=== PATIENT | female | born 1940 | race Two or more races ===

== ENCOUNTER 2020-03-27 10:40 | Outpatient (CLI) | payer OTHER | END 2020-03-27 10:44 | disposition home or self-care (01) | LOC: SONOGRAMA 10:40 | PROVIDERS: ATTEND Pathology Anatomic Pathology & Clinical Pathology | DX: D11.0 Benign neoplasm of parotid gland (principal) ==

== ENCOUNTER 2020-10-07 09:04 | Outpatient (CLI) | payer OTHER | END 2020-10-11 09:10 | disposition home or self-care (01) | LOC: RAD 09:04 | PROVIDERS: ATTEND Colon & Rectal Surgery | DX: K59.09 Other constipation (principal) ==

== ENCOUNTER 2020-12-16 10:45 | Inpatient (IN) | payer OTHER ==
[~2020-12-16] VITALS: Ht 160 cm; Wt 54.4 kg
[2020-12-16] MEDS ORDERED: NORVASC5 MG PO (13:50)
[2020-12-16] MEDS ORDERED: PROTONIX40 MG PO (13:51)
[2020-12-16] MEDS ORDERED: APRESOLINE 10MG10 MG PO (13:51)
[2020-12-16] MEDS ORDERED: GABAPENTIN100 M2 PO (13:51)
[2020-12-16] MEDS ORDERED: FINASTERIDE1 MG PO (13:52)
[2020-12-16] MEDS ORDERED: ZYLOPRIM100 M1 PO (13:52)
[2020-12-16] MEDS ORDERED: TAMS0.4C PO (13:52)
[2020-12-16] MEDS ORDERED: LIPITOR20 MG PO (13:53)
[2020-12-25] MEDS ORDERED: SIMVASTATIN20 MG (10:10)
[2020-12-25] MEDS ORDERED: FAMOTIDINE20 MG (10:10)
[2021-02-13] MEDS ORDERED: INTEGRA F CAPS1 EACH PO (12:44)
[2021-02-13] MEDS ORDERED: TAMS0.4C PO (12:44)
[2021-02-13] MEDS ORDERED: METOPROLOL SUC100 MG PO (12:46)
[2021-02-13] MEDS ORDERED: PROTONIX40 MG PO (12:48)
[2021-02-13] MEDS ORDERED: INTESTINEX680 M1 PO (12:49)
[2021-02-13] MEDS ORDERED: SIMETHICONE125 M1 PO (12:50)
[2021-02-13] MEDS ORDERED: LEVOTHYROXINE50 MCG PO (12:51)
[2021-02-13] MEDS ORDERED: Neurin-Sl Tablet Sl SL (12:52)
[2021-02-13] MEDS ORDERED: FINASTERIDE1 MG PO (12:52)
[2021-02-13] MEDS ORDERED: ZYLOPRIM100 M1 PO (12:53)
[2021-02-13] MEDS ORDERED: B Complex CAPSULE PO (12:53)
[2021-02-13] MEDS ORDERED: PROTEINEX-18 LI30 ML PO (12:54)
[2021-02-13] MEDS ORDERED: THIAMINE HCL100 MG PO (12:56)
[2021-02-13] MEDS ORDERED: ECOTRIN81 MG PO (13:04)
[2021-02-13] MEDS ORDERED: LIPITOR40 M1 PO (13:10)
== END 2021-02-13 18:25 | disposition home health service (06) | DRG 329 ==
LOC: SURH 12-23 07:00 → O/R 12-23 07:15 → SURH 12-23 07:15
PROVIDERS: ADMIT Colon & Rectal Surgery; ATTEND Colon & Rectal Surgery
PROC: 0DTP4ZZ Resection of Rectum, Percutaneous Endoscopic Approach (ICD-10-PCS; 2020-12-23)
PROC: 0DBB4ZZ Excision of Ileum, Percutaneous Endoscopic Approach (ICD-10-PCS; 2020-12-23)
PROC: 0DBN4ZZ Excision of Sigmoid Colon, Percutaneous Endoscopic Approach (ICD-10-PCS; principal; 2020-12-23 07:00)
PROC: 30233N1 Transfusion of Nonautologous Red Blood Cells into Peripheral Vein, Percutaneous Approach (ICD-10-PCS; 2020-12-24)
PROC: 3E0F7SF Introduction of Other Gas into Respiratory Tract, Via Natural or Artificial Opening (ICD-10-PCS; 2020-12-27)
PROC: 02HV33Z Insertion of Infusion Device into Superior Vena Cava, Percutaneous Approach (ICD-10-PCS; 2020-12-28)
PROC: 4A12X4Z Monitoring of Cardiac Electrical Activity, External Approach (ICD-10-PCS; 2020-12-29)
PROC: 5A09457 Assistance with Respiratory Ventilation, 24-96 Consecutive Hours, Continuous Positive Airway Pressure (ICD-10-PCS; 2021-01-04)
PROC: 4A033R1 Measurement of Arterial Saturation, Peripheral, Percutaneous Approach (ICD-10-PCS; 2021-01-05)
PROC: 0W9G40Z Drainage of Peritoneal Cavity with Drainage Device, Percutaneous Endoscopic Approach (ICD-10-PCS; 2021-01-15)
DX: K59.02 Outlet dysfunction constipation (principal); I21.4 Non-ST elevation (NSTEMI) myocardial infarction; J81.0 Acute pulmonary edema; G92.8 Other toxic encephalopathy; J18.9 Pneumonia, unspecified organism; K65.1 Peritoneal abscess; N17.8 Other acute kidney failure; J98.11 Atelectasis; E87.0 Hyperosmolality and hypernatremia; I48.20 Chronic atrial fibrillation, unspecified; J95.84 Transfusion-related acute lung injury (TRALI); K62.5 Hemorrhage of anus and rectum; T81.49XA Infection following a procedure, other surgical site, initial encounter; D62 Acute posthemorrhagic anemia; T81.32XA Disruption of internal operation (surgical) wound, not elsewhere classified, initial encounter; K91.89 Other postprocedural complications and disorders of digestive system; N18.31 Chronic kidney disease, stage 3a; N99.0 Postprocedural (acute) (chronic) kidney failure; E87.6 Hypokalemia; R33.8 Other retention of urine; I13.10 Hypertensive heart and chronic kidney disease without heart failure, with stage 1 through stage 4 chronic kidney disease, or unspecified chronic kidney disease; Z79.01 Long term (current) use of anticoagulants; R09.02 Hypoxemia; Y84.8 Other medical procedures as the cause of abnormal reaction of the patient, or of later complication, without mention of misadventure at the time of the procedure; E11.649 Type 2 diabetes mellitus with hypoglycemia without coma; D69.59 Other secondary thrombocytopenia; Z79.4 Long term (current) use of insulin; Y83.8 Other surgical procedures as the cause of abnormal reaction of the patient, or of later complication, without mention of misadventure at the time of the procedure
CPT/HCPCS: 70544

== ENCOUNTER 2021-03-05 07:43 | Inpatient (IN) | payer OTHER ==
[~2021-03-05] VITALS: Ht 160 cm; Wt 45.4 kg
[~2021-03-05 07:43] MED LIST: APRESOLINE 10MG10 MG PO; B Complex CAPSULE PO; ECOTRIN81 MG PO; FAMOTIDINE20 MG; FINASTERIDE1 MG PO; GABAPENTIN100 M2 PO; INTEGRA F CAPS1 EACH PO; INTESTINEX680 M1 PO; LEVOTHYROXINE50 MCG PO; LIPITOR20 MG PO; LIPITOR40 M1 PO; METOPROLOL SUC100 MG PO; NORVASC5 MG PO; Neurin-Sl Tablet Sl SL; PROTEINEX-18 LI30 ML PO; PROTONIX40 MG PO; SIMETHICONE125 M1 PO; SIMVASTATIN20 MG; TAMS0.4C PO; THIAMINE HCL100 MG PO; ZYLOPRIM100 M1 PO
[2021-03-11] MEDS ORDERED: ABANEU-SL TABL1 EACH (14:44)
[2021-03-11] MEDS ORDERED: B COMPLEX1 EAC1 PO (14:44)
[2021-03-13] MEDS ORDERED: LEVOTHYROXINE50 MCG PO (12:44)
[2021-03-13] MEDS ORDERED: METOPROLOL SUC100 MG PO (12:44)
[2021-03-13] MEDS ORDERED: LIPITOR40 M1 PO (12:44)
[2021-03-13] MEDS ORDERED: FAMOTIDINE20 MG PO (12:44)
[2021-03-13] MEDS ORDERED: INTESTINEX680 M1 PO (12:44)
[2021-03-13] MEDS ORDERED: TAMS0.4C PO (12:44)
[2021-03-13] MEDS ORDERED: ABANEU-SL TABL1 EACH SL (12:44)
[2021-03-13] MEDS ORDERED: FINASTERIDE1 MG PO (12:44)
[2021-03-13] MEDS ORDERED: INTEGRA F CAPS1 EACH PO (12:44)
[2021-03-13] MEDS ORDERED: PROTEINEX-18 LI30 ML PO (12:44)
== END 2021-03-13 16:04 | disposition home or self-care (01) | DRG 690 ==
LOC: ER 07:43 → MEDI 12:12
PROVIDERS: ADMIT Internal Medicine Geriatric Medicine; ATTEND Internal Medicine Geriatric Medicine
PROC: 30233N1 Transfusion of Nonautologous Red Blood Cells into Peripheral Vein, Percutaneous Approach (ICD-10-PCS; principal; 2021-03-06)
PROC: 8E0ZXY6 Isolation (ICD-10-PCS; 2021-03-09)
DX: N39.0 Urinary tract infection, site not specified (principal); D64.9 Anemia, unspecified; L89.159 Pressure ulcer of sacral region, unspecified stage; I13.10 Hypertensive heart and chronic kidney disease without heart failure, with stage 1 through stage 4 chronic kidney disease, or unspecified chronic kidney disease; N18.30 Chronic kidney disease, stage 3 unspecified; N40.0 Benign prostatic hyperplasia without lower urinary tract symptoms; B96.20 Unspecified Escherichia coli [E. coli] as the cause of diseases classified elsewhere; B96.89 Other specified bacterial agents as the cause of diseases classified elsewhere; R41.82 Altered mental status, unspecified; R53.81 Other malaise; Z20.822 Contact with and (suspected) exposure to COVID-19

== ENCOUNTER 2021-07-05 12:03 | Emergency (ER) | payer OTHER ==
[~2021-07-05] VITALS: Ht 160 cm; Wt 54.4 kg
[~2021-07-05 12:03] MED LIST changes: +ABANEU-SL TABL1 EACH; +ABANEU-SL TABL1 EACH SL; +B COMPLEX1 EAC1 PO; +FAMOTIDINE20 MG PO
== END 2021-07-05 16:53 | disposition home or self-care (01) ==
LOC: ER 12:03
DX: K94.01 Colostomy hemorrhage (principal); Z88.0 Allergy status to penicillin; I10 Essential (primary) hypertension

== ENCOUNTER 2021-07-06 08:42 | Emergency (ER) | payer OTHER ==
[~2021-07-06] VITALS: Ht 160 cm; Wt 54.4 kg
== END 2021-07-06 12:56 | disposition home or self-care (01) ==
LOC: ER 08:42
DX: K94.00 Colostomy complication, unspecified (principal)

== ENCOUNTER 2022-01-15 17:43 | Emergency (ER) | payer OTHER ==
[~2022-01-15] VITALS: Ht 160 cm; Wt 81.6 kg
[2022-01-16] MEDS ORDERED: PEPCID AC20 MG PO (01:53)
[2022-01-16] MEDS ORDERED: LEVSIN0.125 MG PO (01:53)
[2022-01-16] MEDS ORDERED: INTESTINEX680 M1 PO (01:53)
== END 2022-01-16 02:03 | disposition home or self-care (01) ==
LOC: ER 17:43
DX: K94.11 Enterostomy hemorrhage (principal); I10 Essential (primary) hypertension; Z88.0 Allergy status to penicillin

== ENCOUNTER 2022-01-28 09:33 | Emergency (ER) | payer OTHER ==
[~2022-01-28] VITALS: Ht 160 cm; Wt 56.2 kg
[~2022-01-28 09:33] MED LIST changes: +LEVSIN0.125 MG PO; +PEPCID AC20 MG PO
[2022-01-28] MEDS ORDERED: BIOTINEX (10:11)
[2022-01-28] MEDS ORDERED: ACID REDUCER20 M1 PO (10:11)
== END 2022-01-28 13:54 | disposition home or self-care (01) ==
LOC: ER 09:33
DX: N99.522 Malfunction of incontinent external stoma of urinary tract (principal); U09.9 Post COVID-19 condition, unspecified; Z88.0 Allergy status to penicillin

== ENCOUNTER 2023-10-17 10:45 | Inpatient (IN) | payer OTHER ==
[~2023-10-17] VITALS: Ht 160 cm; Wt 56.7 kg
[~2023-10-17 10:45] MED LIST changes: +ACID REDUCER20 M1 PO; +BIOTINEX; -SIMVASTATIN20 MG; +SIMVASTATIN20 MG PO
[2023-10-17] MEDS ORDERED: PROSCAR5 MG PO (13:13)
[2023-10-17] MEDS ORDERED: [UNRECOGNIZED DRUG - OTHER] PO (13:14)
[2023-10-19] MEDS ORDERED: PRAMIPEXOLE DI0.5 MG (13:46)
[2023-10-19] MEDS ORDERED: NORVASC2.5 MG (13:46)
[2023-10-19] MEDS ORDERED: METRONIDAZOLE/SODIUM CHLORIDE 500 MG/100 ML PIGGYBACK IV ONE (14:15)
[2023-10-19] MEDS ORDERED: levoFLOXacin IN DEXTROSE 5 % 5 MG/ML PIGGYBAG IV ONE (14:15)
[2023-10-19] MEDS ORDERED: OxyCODONE HCL 5 MG TABLET (ROXICODONE) PO PRN (14:45)
[2023-10-19] MEDS ORDERED: MORPHINE SULFATE 4 MG/ML CARTRIDGE IV PRN (14:45)
[2023-10-19] MEDS ORDERED: ONDANSETRON HCL 2 MG/ML VIAL IV PRN (14:45)
[2023-10-19] MEDS ORDERED: RINGERS SOLUTION,LACTATED 1,000 ML IV SCH (14:45)
[2023-10-19] MEDS ORDERED: hydrALAZINE HCL 20 MG VIAL IV PRN (17:00)
[2023-10-19] MEDS ORDERED: CELECOXIB 200 MG CAPSULE PO SCH (17:00)
[2023-10-19] MEDS ORDERED: POLYETHYLENE GLYCOL 3350 17 GM BLIST.PACK PO SCH (17:00)
[2023-10-19] MEDS ORDERED: HYOSCYAMINE SULFATE 0.125 MG TAB.SUBL SL SCH (17:00)
[2023-10-19] MEDS ORDERED: SIMETHICONE 125 MG CAPSULE PO SCH (17:00)
[2023-10-19] MEDS ORDERED: GABAPENTIN 300 MG CAPSULE PO SCH (17:00)
[2023-10-19] MEDS ORDERED: METOCLOPRAMIDE HCL 5 MG/ML VIAL IV SCH (17:00)
[2023-10-19 19:08] LABS: ABG PH 7.397 (7.35-7.45); ABG PO2 115.9 mmHg (80-100); ABG pCO2 43.1 mmHg (35-45); BASE EXCESS 0.8 mmol/l; BICARBONATE 25.9 mmol/l (23-25); SaO2 98.5 %; Tco2 27.2 mmol/l
[2023-10-19 19:16] LABS: HEMATOCRIT 36.9 % (39.0-48.0); HEMOGLOBIN 12.6 g/dL (13-16.00); MEAN CELL VOLUME 93.1 fL (80.0-100.00); MEAN CORPUSCULAR HEMOGLOBIN 31.8 pg (27.00-32.0); MEAN CORPUSCULAR HGB CONC 34.2 g/dl (32.0-36.0); PLATELET COUNT 180 K/uL (150-450); RED BLOOD COUNT 3.96 M/uL (4.00-6.00)
[2023-10-19 19:50] LABS: allen test SATISFACTORY; o2 36 %; puncture site RADIAL LEFT
[2023-10-19] MEDS ORDERED: ACETAMINOPHEN 500 MG GEL..CAP PO SCH (20:00)
[2023-10-19] MEDS ORDERED: TAMSULOSIN HCL 0.4 MG CAP PO SCH (21:00)
[2023-10-19] MEDS ORDERED: FAMOTIDINE/PF 20 MG/2 ML VIAL IV PUSH SCH (21:00)
[2023-10-20] MEDS ORDERED: LEVOTHYROXINE SODIUM 50 MCG TABLET PO SCH (06:00)
[2023-10-20 07:10] LABS: HEMATOCRIT 36.4 % (39.0-48.0); HEMOGLOBIN 12.4 g/dL (13-16.00); MEAN CELL VOLUME 92.7 fL (80.0-100.00); MEAN CORPUSCULAR HEMOGLOBIN 31.5 pg (27.00-32.0); MEAN CORPUSCULAR HGB CONC 33.9 g/dl (32.0-36.0); PLATELET COUNT 165 K/uL (150-450); RED BLOOD COUNT 3.93 M/uL (4.00-6.00); RED CELL DISTRIBUTION WIDTH 14.5 % (11.5-14.5)
[2023-10-20 07:32] LABS: ALBUMIN 3.3 gm/dL (3.4-5.0); CALCIUM 8.8 mg/dL (8.5-10.1); CREATININE SERUM 2.03 mg/dL (0.70-1.30); GFR 31.37; MAGNESIUM 2.4 mg/dL (1.8-2.4); PHOSPHOROUS 3.7 mg/dL (2.5-4.9); POTASSIUM 3.81 mEq/L (3.5-5.1)
[2023-10-20] MEDS ORDERED: LACTOBACILLUS ACIDOPHILUS 1 CAP CAP PO SCH (09:00)
[2023-10-20] MEDS ORDERED: ALLOPURINOL 100 MG TABLET PO SCH (09:00)
[2023-10-20] MEDS ORDERED: FINASTERIDE 5 MG TABLET PO SCH (09:00)
[2023-10-20] MEDS ORDERED: LACTULOSE 20 G/30 ML BLIST.PACK PO SCH (09:00)
[2023-10-20] MEDS ORDERED: AMLODIPINE BESYLATE 5 MG TABLET PO SCH (09:00)
[2023-10-20] MEDS ORDERED: LEVALBUTEROL HCL 1.25 MG/3 ML SOLUTION IH SCH (09:00)
[2023-10-20] MEDS ORDERED: ENOXAPARIN SODIUM 40 MG/0.4 ML SYRINGE SUBCUTANEO SCH (17:00)
[2023-10-20] MEDS ORDERED: ENOXAPARIN SODIUM 30 MG/0.3 ML SYRINGE SUBCUTANEO SCH (17:00)
[2023-10-20] MEDS ORDERED: ATORVASTATIN CALCIUM 40 MG TABLET PO SCH (17:00)
[2023-10-21 02:53] LABS: HEMATOCRIT 30.9 % (39.0-48.0); HEMOGLOBIN 10.7 g/dL (13-16.00); MEAN CELL VOLUME 91.8 fL (80.0-100.00); MEAN CORPUSCULAR HEMOGLOBIN 31.8 pg (27.00-32.0); MEAN CORPUSCULAR HGB CONC 34.7 g/dl (32.0-36.0); PLATELET COUNT 140 K/uL (150-450); RED BLOOD COUNT 3.36 M/uL (4.00-6.00); RED CELL DISTRIBUTION WIDTH 14.1 % (11.5-14.5)
[2023-10-21 03:55] LABS: CALCIUM 8.2 mg/dL (8.5-10.1); CREATININE SERUM 2.13 mg/dL (0.70-1.30); GFR 29.68; MAGNESIUM 2.2 mg/dL (1.8-2.4); PHOSPHOROUS 3.9 mg/dL (2.5-4.9); POTASSIUM 3.29 mEq/L (3.5-5.1)
[2023-10-21] MEDS ORDERED: POTASSIUM CHLORIDE 20MEQ/100ML H2O PB IV NR (08:45)
[2023-10-21] MEDS ORDERED: ENOXAPARIN SODIUM 30 MG/0.3 ML SYRINGE SUBCUTANEO SCH (09:00)
[2023-10-21] MEDS ORDERED: SOD FERRIC GLUC COMPLX/SUCROSE 62.5 MG in 0.9 % SODIUM CHLORIDE 50 ML IV SCH (09:00)
[2023-10-21] MEDS ORDERED: ENOXAPARIN SODIUM 40 MG/0.4 ML SYRINGE SUBCUTANEO SCH (09:00)
[2023-10-22] MEDS ORDERED: MAGNESIUM HYDROXIDE 30 ML BLIST.PACK PO NR (08:30)
[2023-10-22] MEDS ORDERED: HYOSCYAMINE0.125 M1 SL (12:52)
[2023-10-22] MEDS ORDERED: PAIN RELIEVER500 M2 PO (12:53)
[2023-10-22] MEDS ORDERED: INTESTINEX680 M1 PO (12:54)
[2023-10-22] MEDS ORDERED: SIMETHICONE125 M1 PO (12:55)
[2023-10-22] MEDS ORDERED: CELEBREX200MG PO (12:55)
[2023-10-22] MEDS ORDERED: MIRALAX17 GM PO (12:56)
== END 2023-10-22 14:57 | disposition home or self-care (01) | DRG 331 ==
LOC: O/R 10-19 08:25 → SURG 10-19 08:25 → SURH 10-19 10:45 → SURG 10-19 16:25
PROVIDERS: Internal Medicine Geriatric Medicine; ADMIT Colon & Rectal Surgery; ATTEND Colon & Rectal Surgery
PROC: 4A12X4Z Monitoring of Cardiac Electrical Activity, External Approach (ICD-10-PCS; 2023-10-19)
PROC: 0DBE4ZZ Excision of Large Intestine, Percutaneous Endoscopic Approach (ICD-10-PCS; principal; 2023-10-19 10:45)
PROC: 3E0F7GC Introduction of Other Therapeutic Substance into Respiratory Tract, Via Natural or Artificial Opening (ICD-10-PCS; 2023-10-20)
DX: Z43.3 Encounter for attention to colostomy (principal); K59.09 Other constipation; K66.0 Peritoneal adhesions (postprocedural) (postinfection); R00.1 Bradycardia, unspecified; D64.89 Other specified anemias; J44.9 Chronic obstructive pulmonary disease, unspecified; I12.9 Hypertensive chronic kidney disease with stage 1 through stage 4 chronic kidney disease, or unspecified chronic kidney disease; N18.30 Chronic kidney disease, stage 3 unspecified; E03.9 Hypothyroidism, unspecified; E78.5 Hyperlipidemia, unspecified